=== PATIENT | male | born 1995 | race Two or more races ===

== ENCOUNTER 2016-08-20 10:21 | Emergency (ER) | payer SELFPAY ==
[2016-08-20 11:01] VITALS: BP 123/59; PULSE 51; TEMP 99; BMI 23.3
[2016-08-20 11:07] LABS: AUTOMATED BASOPHIL 0.2 % (0-2); AUTOMATED EOSINOPHIL 1.4 % (0-5); AUTOMATED LYMPH 9.5 % (17-44); AUTOMATED MONOCYTE 5.7 % (3-10); AUTOMATED NEUTROPHIL 83.2 % (45-76); MPV 9.2 fL (7.4-10.4)
[2016-08-20 11:26] LABS: BLOOD UREA NITROGEN 13 MG/DL (9-20); CALCIUM 9.6 MG/DL (8.4-10.2); CALCULATED OSMOLALITY 273 MOs/Kg (270-290); CHLORIDE 102 mEq/L (98-107); GLUCOSE 104 MG/DL (70-99); SODIUM LEVEL 142 mEq/L (137-146); TOTAL PROTEIN 7.5 G/DL (6.3-8.2)
[2016-08-20 12:02] LABS: LEUKOCYTES/URINE NEG (NEGATIVE); NITRITE/URINE NEG (NEGATIVE); RBC/URINE 0-2 (0-2); URINE OCCULT BLOOD NEG (NEG/TRACE); WBC/URINE 0-2 (0-2)
== END 2016-08-20 16:00 | disposition left against medical advice (07) ==
LOC: ED 10:21
DX: R10.9 Unspecified abdominal pain (principal)
CPT/HCPCS: 80053; 81001; 85025; 99281